=== PATIENT | male | born 1970 | race Caucasian/White ===

== ENCOUNTER 2023-11-05 13:24 | Emergency (ER) | payer SELFPAY ==
[2023-11-05] VITALS (10 sets, daily range): BP systolic 112–153; BP diastolic 82–98; PULSE 96–107; BMI 37.4
[2023-11-05 13:57] LABS: ALT (SGPT) 45 U/L (0-50); AST (SGOT) 50 U/L (17-59); Albumin 4.4 g/dl (3.5-5.0); Alkaline Phosphatase 44 U/L (38-126); Blood Urea Nitrogen 21 mg/dl (9-20); Carbon Dioxide 22 mmol/L (22-30); Chloride 105 mmol/L (98-107); Estimated Creatinine Clearance > 125 ml/min; Glucose 117 mg/dl (70-99); Potassium 3.8 mmol/L (3.5-5.1); Sodium 139 mmol/L (135-145); Total Bilirubin 1.2 mg/dl (0.2-1.3); Total Protein 6.9 g/dl (6.3-8.2); eGFR > 60.00
[2023-11-05 14:03] LABS: % Basophils 0.8 % (0-2); % Eosinophils 0.4 % (0-6); % Immature Granulocytes 1.3 % (0-0.5); % Lymphocytes 14.6 % (20.5-51.1); % Monocytes 5.6 % (1.7-9.3); % Neutrophils 77.3 % (42.2-75.2); Absolute Basophils 0.1 10^3/uL (0-0.2); Absolute Immature Granulocytes 0.1 10^3/uL (0-0.05); Absolute Lymphocytes 1.2 10^3/uL (1.2-3.4); Absolute Monocytes 0.4 10^3/uL (0.1-0.6); Absolute Neutrophils 6.1 10^3/uL (1.4-6.5); Hematocrit 46.1 % (39.0-52.0); Hemoglobin 16.4 g/dL (13.0-18.0); Mean Corp Hgb Conc. 35.6 g/dL (33.0-37.0); Mean Corpuscular Hgb 31.3 pg (27.0-31.0); Mean Platelet Volume 8.9 fL (7.4-10.4); Nucleated Red Blood Cells % 0 % (-); Platelet Count 221 10^3/uL (130-400); Red Blood Cell Count 5.24 10^6/uL (4.70-6.10); Red Cell Dist. Width 13.2 % (11.5-14.5); White Blood Cell Count 7.9 10^3/uL (4.8-10.8)
[2023-11-05 14:08] LABS: Troponin I < 0.012 ng/ml
--- NOTE | 2023-11-05 16:27 | ED.GENMED ---
History of Present Illness
<Trice Baker PA-C - Last Filed: 11/05/23 21:41>
General
Chief Complaint: Fainting/Passed Out
Source: patient and police
Exam Limitations: none
Time Seen by Provider: 11/05/23 14:52
Nursing documentation reviewed up to this point in time: agreed with
Travel History
Have you had any contact with someone who has COVID-19?: No
Do you have any symptoms of coronavirus? Fever > 100 degrees, chills, cough, shortness of breath, sore throat, loss of taste or smell, muscle aches, or headache?: No
History of Present Illness
History of Present Illness:
pt is a 53 y/o M with h/o HTN
[facility] and while in line got lightheaded, cold sweat and passed out, witnessed
Phy Exam
<Trice Baker PA-C - Last Filed: 11/05/23 21:41>
Physical Exam
Physical Exam:
GENERAL: Alert , in no apparent distress
HEAD: NCAT
NECK: no midline tenderness, active ROM intact, no paraspinal muscle tenderness;
EYE: pupils equal and reactive, EOMs intact.
ENT: o/p clr, mmm. no hemotympanum
CARDIAC: Regular rate and rhythm, no edema
ches wall: mild lower chest wall tenderness;
LUNGS: Clear breath sounds bilaterally, no acute respiratory distress, no wheezes/rales/rhonchi
ABDOMEN: Soft, without focal tenderness, no r/g, no cvat
NEUROLOGICAL: Alert and oriented, no focal neuro deficits, CN intact, 5/5 strength, sensation intact
SKIN: Warm and dry,
MUSCULOSKELETAL: right forearm mild tendneress, sts
full rom
right knee patella mildly protuberant, slightly tender
able to flex and extend
able to straight leg raise
PSYCH: Normal and appropriate interaction.
Course
<Trice Baker PA-C - Last Filed: 11/05/23 21:41>
Orders/Labs/Results
Orders:
Orders
11/05/23 13:29
Electrocardiogram (*1) Urgent
Reason for Study: Syncope
EKG- Treatment ONCE
11/05/23 13:32
Complete Blood Count/With Diff Urgent
Comprehensive Metabolic Panel Urgent
Troponin I Urgent
11/05/23 16:26
Orthostatic VS- Treatment ONCE
CR Forearm - Right 2 View Urgent
Comment:
Reason For Exam: forearm pain after syncpe
CR Knee- Right 4 Or More View* Urgent
Comment:
Reason For Exam: knee pain after syncope
11/05/23 16:42
D-Dimer Urgent
11/05/23 17:10
CT Chest Pe Study Urgent
Comment:
Reason For Exam: syncope, elevated d dmier
11/05/23 17:12
0.9% Sodium Chloride 1000 ml [Nss] 1,000 ml IV BOLUS
11/05/23 18:00
Electrocardiogram (*1) Urgent
Reason for Study: Chest Pain
EKG- Treatment ONCE
11/05/23 18:13
Troponin I Urgent
11/05/23 19:37
Acetaminophen [Tylenol] 650 mg PO NOW STA
Amlodipine [Norvasc] 5 mg PO NOW STA
Abnormal Lab Results
11/05/23 11/05/23
13:32 16:42
MCH 31.3 H pg
(27.0-31.0)
Abs Immat Gran (auto) 0.1 H 10^3/uL
(0-0.05)
Immature Gran % 1.3 H %
(0-0.5)
Neutrophils % 77.3 H %
(42.2-75.2)
Lymphocytes % 14.6 L %
(20.5-51.1)
D-Dimer 1.22 H ug/mlFEU
(0.00-0.50)
BUN 21 H mg/dl
(9-20)
Glucose 117 H mg/dl
(70-99)
11/05/23 13:32
11/05/23 13:32
Vital Signs
Initial and Last Documented VS:
Initial Vital Signs
Temp Pulse Resp BP Pulse Ox
98.4 F 92 18 137/95 95
11/05/23 13:26 11/05/23 13:26 11/05/23 13:26 11/05/23 13:26 11/05/23 13:26
Last Documented Vital Signs
Temp Pulse Resp BP Pulse Ox
98.4 F 100 14 137/94 96
11/05/23 13:26 11/05/23 19:52 11/05/23 19:15 11/05/23 19:52 11/05/23 19:50
<Kelly Elias MD - Last Filed: 11/05/23 19:51>
Orders/Labs/Results
Orders:
Orders
11/05/23 13:29
Electrocardiogram (*1) Urgent
Reason for Study: Syncope
EKG- Treatment ONCE
11/05/23 13:32
Complete Blood Count/With Diff Urgent
Comprehensive Metabolic Panel Urgent
Troponin I Urgent
11/05/23 16:26
Orthostatic VS- Treatment ONCE
CR Forearm - Right 2 View Urgent
Comment:
Reason For Exam: forearm pain after syncpe
CR Knee- Right 4 Or More View* Urgent
Comment:
Reason For Exam: knee pain after syncope
11/05/23 16:42
D-Dimer Urgent
11/05/23 17:10
CT Chest Pe Study Urgent
Comment:
Reason For Exam: syncope, elevated d dmier
11/05/23 17:12
0.9% Sodium Chloride 1000 ml [Nss] 1,000 ml IV BOLUS
11/05/23 18:00
Electrocardiogram (*1) Urgent
Reason for Study: Chest Pain
EKG- Treatment ONCE
11/05/23 18:13
Troponin I Urgent
11/05/23 19:37
Acetaminophen [Tylenol] 650 mg PO NOW STA
Amlodipine [Norvasc] 5 mg PO NOW STA
Abnormal Lab Results
11/05/23 11/05/23
13:32 16:42
MCH 31.3 H pg
(27.0-31.0)
Abs Immat Gran (auto) 0.1 H 10^3/uL
(0-0.05)
Immature Gran % 1.3 H %
(0-0.5)
Neutrophils % 77.3 H %
(42.2-75.2)
Lymphocytes % 14.6 L %
(20.5-51.1)
D-Dimer 1.22 H ug/mlFEU
(0.00-0.50)
BUN 21 H mg/dl
(9-20)
Glucose 117 H mg/dl
(70-99)
11/05/23 13:32
11/05/23 13:32
Vital Signs
Initial and Last Documented VS:
Initial Vital Signs
Temp Pulse Resp BP Pulse Ox
98.4 F 92 18 137/95 95
11/05/23 13:26 11/05/23 13:26 11/05/23 13:26 11/05/23 13:26 11/05/23 13:26
Last Documented Vital Signs
Temp Pulse Resp BP Pulse Ox
98.4 F 100 14 137/94 96
11/05/23 13:26 11/05/23 19:52 11/05/23 19:15 11/05/23 19:52 11/05/23 19:50
<Trice Baker PA-C - Last Filed: 11/05/23 21:41>
MDM/Problems Addressed
Differential Diagnosis Includes:
vagal event, orthostasis, PE, dysrhythmia
MDM/Problems Addressed:
53 y/o M
with h/o HTN
no h/o syncope
getting checked into [facility] and passed out
got lightheaded and cold sweat prior
hit knee and forearm
having some upper abdomen soreness/chest sorenss
didn't hit head according to the office with him
no htinners and no headache
ekg nsr 1st trop neg
d dimer elevated
ct pe shows some chronic changes related to pulm fibrosis/intersisitla lung disease which pt doesn't have h/o
i gave him copy of retport
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
pt has his leg in extension and can straight leg raise
so there is unlikely to be quad rupture
d/w ortho who agrees
2nd trop and ekg normal
d/w dr. elias who agree with dipso to [facility]
<Trice Baker PA-C - Last Filed: 11/05/23 21:41>
*Critical Care Note
Total Time (30-74mins, 75-104mins- exclusive of procedures): Not Applicable
ED Attending Note
<Trice Baker PA-C - Last Filed: 11/05/23 21:41>
-
Portions of this chart may have been created with voice recognition software.� Occasional wrong word or��sound alike� substitutions may have occurred due to the inherent limitations of voice recognition software.
<Kelly Elias MD - Last Filed: 11/05/23 19:51>
ED Attending Note
Patient seen and examined by attending physician: Yes
I performed the substantive portion of visit, reviewed & personally made and approve the management plan that is documented in note by myself or BLAISE.: Yes
ED Attending Note:
53 yr old male who presents to the ED with reported syncopal episode...felt lightheaded, sweaty, and then noted to have a short lived syncopal event, no sz like activity reported, no postical period. No cp/sob/abd pain/cp/sob or other compltns. On
exam, oriented fully, hrt rrr lung cta abd soft nt nd. W/u here unremarkable, including CT chest/ecg, etc.
Discharge Plan
Departure
Patient Disposition: [facility]sp
Date of Disposition: 11/05/23
Time of Disposition: 19:38
Patient with high blood pressure during this ER visit?: No
Condition: Fair
Covid-19: Not Applicable
Discharge Problem:
Syncope, Contusion of knee, Contusion of forearm, Interstitial lung disease
Instructions: Contusion (DC), Syncope (Fainting) (DC)
Referrals:
[facility] [Family Provider] -
Activity Restrictions/Additional Instructions:
Jose you passed out today. You probably were a little volume depleted but we gave you fluids. Your workup today did not show any obvious cause for your passing out. You did not have a blood clot in your lungs. You do incidentally have some
lung changes that could be chronic and causing interstitial lung disease. You should follow-up with your family doctor when you can. They may refer you to a seconds inspector. You also had an incidental finding on your x-ray of your knee which is
likely just a developmental variant from your youth and not clinically relevant. You probably banged your knee. Ice off-and-on. Tylenol for pain. We did give you a dose of your amlodipine for today since he missed it.
Return for any concerns.
You are medically cleared for incarceration
Interventions
Interventions:
*Risk Screen - Suicide Last Done: 11/05/23 13:26
*General Assessment Last Done: 11/05/23 13:26
*Neglect/Abuse Screening Last Done: 11/05/23 13:26
ED- Fall Risk Assessment Last Done: 11/05/23 13:26
*ED COVID-19 Vaccine History Last Done: 11/05/23 13:26
*Nursing Disposition Last Done: 11/05/23 19:58
ED- Cardiac Assessment Last Done: 11/05/23 13:26
ED- Neurological Assessment Last Done: 11/05/23 13:26
Discharge Date and Time
Discharge Date/Time: 11/05/23 19:59
[2023-11-05 17:00] LABS: D-Dimer 1.22 ug/mlFEU (0.00-0.50)
[2023-11-05] MEDS: NSS 1000 IV (17:47)
[2023-11-05 18:45] LABS: Troponin I < 0.012 ng/ml
[2023-11-05] MEDS: NORVASC 5 MG PO (19:52)
[2023-11-05] MEDS: TYLENOL 650 MG PO (19:52)
== END 2023-11-05 19:59 ==
LOC: EMR 13:24
PROVIDERS: Emergency Medicine; Physician Assistant; EMERGENCY PHYSICIAN Emergency Medicine
DX: R55 Syncope and collapse (principal); S80.01XA Contusion of right knee, initial encounter; S50.11XA Contusion of right forearm, initial encounter; J84.9 Interstitial pulmonary disease, unspecified; I10 Essential (primary) hypertension
CPT/HCPCS: 99285; 96360; 71275; 73090; 73564; 80053; 84484; 85025; 85379; 93005; Q9967